=== PATIENT | male | born 1930 | race Caucasian/White ===

== ENCOUNTER 2017-08-12 18:36 | Inpatient (IN) | payer MEDICARE ==
--- NOTE | 2017-08-12 19:17 | RAD ---
CHEST ONE VIEW: 08/12/17 HISTORY: Sepsis alert. Fever. COMPARISON: 07/21/16. 03/23/16. FINDINGS: Atherosclerosis of the aorta. Normal cardiac silhouette. Diminished lung volumes. No consolidation or masses. No pleural effusion. No pneumothorax. Chronic injury to the right scapula is noted. IMPRESSION: No acute cardiopulmonary process. POS: [facility]
[2017-08-12 19:36] LABS: #Lymphocytes 1.1 thou/uL (1.20-3.40); #Monocytes 1.3 thou/uL (0.11-0.59); #Neutrophils 15.4 thou/uL (1.40-6.50); %Basophils 0.2 % (0.0-1.0); %Eosinophils 0.2 % (0.0-10.0); %Lymphocytes 5.9 % (21.0-51.0); %Monocytes 7.1 % (0.0-10.0); %Neutrophils 86.7 % (42.0-75.0); Hemoglobin 12.5 g/dL (14.0-18.0); Mean Corpuscular HGB CONC 33.4 g/dL (32.0-36.0); Mean Corpuscular Hemoglobin 31.7 pg (27.0-31.0); Mean Corpuscular Volume 94.8 fl (80.0-94.0); Mean Platelet Volume 6.2 fL (7.4-10.4); Platelet Count 248 thou/uL (130-400); RBC Distribution Width 12.5 % (11.5-14.5); Red Blood Cell (RBC) Count 3.95 mill/uL (4.70-6.10); White Blood Cell (WBC) Count 17.8 thou/uL (4.8-10.8)
[2017-08-12 19:36] LABS: Bilirubin Negative (Negative); Blood, Urine Trace (Negative); Clarity CLOUDY (Clear); Glucose, Urine (Dipstick) Negative (Negative); Leukocyte Large (Negative); Nitrite Negative (Negative); Protein, Urine (Dipstick) 30 mg/dL (Neg-Trace); Specific Gravity, Urine 1.016 (1.002-1.036); Urobilinogen 0.2 mg/dL (0.2-1.0); pH, Urine 7.5 (5.0-9.0)
[2017-08-12 19:37] LABS: Bacteria/HPF 4+ HPF (None Seen); Pathc Cast-AUWi Flag 1.01 (0-2.49); RBC/HPF 0-3 HPF (0-3); Squamous Epithelial None Seen HPF (0-3)
[2017-08-12 19:39] LABS: Hyaline Casts/LPF 0-3 HYALINE CAST LPF (0-3 Hyaline)
[2017-08-12 19:41] LABS: PTT 32.7 SEC (22.9-36.1)
[2017-08-12 19:46] LABS: INR-International Normal Ratio 1.1; Prothrombin Time 14.7 SEC (12.0-14.7)
[2017-08-12 19:56] LABS: CRP (Inflammatory) 5.84 mg/dL (= or < 0.5); Magnesium 1.6 mg/dL (1.6-2.6)
[2017-08-12 19:58] LABS: ALT (SGPT) 12 U/L (8-55); AST (SGOT) 18 U/L (5-34); Albumin 3.5 g/dL (3.4-4.8); Alkaline Phosphatase 64 U/L (40-150); Anion Gap 15 mmol/L (10-20); BUN (Urea Nitrogen) 16 mg/dL (8.4-25.7); Bilirubin, Total 0.4 mg/dL (0.2-1.2); CK (CPK) 112 U/L (30-200); Calc. Creatinine Clearance 0 mL/min (70-130); Calcium 8.6 mg/dL (7.8-10.44); Carbon Dioxide 19 mmol/L (23-31); Chloride 98 mmol/L (98-107); Estimated GFR-MDRD 87; Globulin 3.3 g/dL (2.4-3.5); Glucose 169 mg/dL (83-110); Protein, Total 6.8 g/dL (5.8-8.1); Sodium 128 mmol/L (136-145)
[2017-08-12 20:01] LABS: CKMB 0.9 ng/mL (0-6.6); Troponin I 0.015 ng/mL (< 0.028)
--- NOTE | 2017-08-12 21:28 | PDOC.FPRHP ---
- History of Present Illness Chief Complaint: AMS, Fever at [facility] History of Present Illness: 86 yo male comes in after having increased confusion and fever recorded at [facility] today. Pt is A&Ox1. Unable to obtain accurate history from the patient. Reports having chills at this time. Reports having some pain in his legs. Denies any SOB or chest pain. Pt mireya, the POA, is present in the room. 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 santana for last week. Is getting cream for it to see if hills. Has colostomy in place. Pt right now getting cream for his eye. 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 She reports being told by [facility] he appeared ill and had fever. She says recently he has had trouble swallowing liquids and coughs when drinking. She says patient is around his baseline of confusion. Says he does not know where he is at all the time. No other concerns or complaints at this time. - Allergies/Adverse Reactions Allergies Allergy/AdvReac Type Severity Reaction Status Date / Time metformin HCl Allergy Mild Verified 07/13/16 22:57 [From Glucophage] - Home Medications Medication Instructions Recorded Confirmed Type Acetaminophen [Tylenol Regular 1 - 2 tab PO Q4HR 11/11/14 08/12/17 History Strength] Bisacodyl [Dulcolax] 10 mg MA DAILY PRN 03/04/15 08/12/17 History Furosemide 20 mg PO QAM 03/13/15 08/12/17 History Calcium Carbonate/Vitamin D3 600 tablet PO DAILY 03/23/16 08/12/17 History [Calcium 600 + Vitamin D] Cholecalciferol (Vitamin D3) 2,000 unit PO DAILY 03/23/16 08/12/17 History [Vitamin D3] Pantoprazole [Protonix] 40 mg PO DAILY 03/23/16 08/12/17 History Metoprolol Tartrate [Lopressor] 12.5 mg PO BID #60 tab 03/24/16 08/12/17 Rx Aspirin [Aspirin Chewable Tablet] 81 mg PO DAILY 03/31/16 08/12/17 History Insulin Glargine,Hum.Rec.Anlog 10 unit SQ QAM 03/31/16 08/12/17 History [Lantus Solostar] Multivitamin [Multivitamins] 1 tab PO DAILY 07/13/16 08/12/17 History Diltiazem HCl [Cardizem] 60 mg PO 0700,1500,2300 #90 tab 07/24/16 08/12/17 Rx Ferrous Sulfate 325 mg PO DAILY #30 tablet 07/24/16 08/12/17 Rx traMADol HCl [Ultram] 50 mg PO QID #30 tab 07/24/16 08/12/17 Rx Diltiazem HCl [Cardizem SR] 180 mg PO DAILY 08/12/17 08/12/17 History Erythromycin Base 0.5% Oint 1 applic R EYE BID 08/12/17 08/12/17 History [Erythromycin Base 0.5% Oint] Nystatin [Nystatin Powder] 1 applic TOP BID PRN 08/12/17 08/12/17 History Propylene Glycol/PEG 400/PF 2 each OP BID 08/12/17 08/12/17 History [Systane 0.3-0.4% Eye Drops] - History PMHx: Perirectal Abscess, Colostomy Present, Hx of Adenocarcinoma of Sigmoid Colon, Anemia of chronic disease, Chronic Hyponatremia, Vitamin D Deficiency, GERD, dCHF, hx a. fib, DMII PSHx: R. fourth toe amputation, Perirectal I/T/D fistulotomy 2014, Left Hemicolectomy FHx: Noncontributory Social: No drugs, alcohol, or illicit drug use. Lives at [facility] - Review of Systems ROS unobtainable: due to mental status General: reports: fever/chills, weight/appetite/sleep changes. denies: night sweats, fatigue, other ENT: denies: rhinorrhea, other Respiratory: denies: cough, congestion, shortness of breath, exercise intolerance, other Cardiovascular: denies: chest pain, palpitation, edema, paroxysmal nocturnal dyspnea, orthopnea Gastrointestinal: denies: nausea, vomiting, constipation, GI bleeding Genitourinary: denies: incontinence, dysuria, polyuria, discharge Skin: denies: rashes, lesions, jaundice, itching Musculoskeletal: denies: pain, tenderness, stiffness, swelling, arthritis/ arthralgias Neurological: denies: numbness, syncope, seizure, weakness Psychological: denies: anxiety, depression - Vital signs BP: [163/94] HR: [94] RR: [18] Tmax: [99.3] Pox: [98%]% on [RA] Wt: [] - Physical Exam Constitutional: NAD, awake, alert and oriented, well developed HEENT: normocephalic and atraumatic, PERRLA -HEENT: mucous membranes dry Neck: supple, no LAD, no JVD Chest: no-tender to palpation, no lesions Heart: normal S1/S2, no murmurs/rubs/gallops, pulses present -Heart: irregularly irregular Lungs: CTAB, no respiratory distress, good air movement, no rales/rhonchi Abdomen: soft, bowel sounds present -Abdomen: Large reducible umbilical hernia on the left side noted. Colostomy in LUQ. Patent, no sign of infection or obstructions Musculoskeletal: normal structure, normal tone, ROM grossly normal Neurological: no focal deficit Skin: no rash/lesions -Skin: Has basal cell cancers on nose Heme/Lymphatic: no unusual bruising or bleeding, no purpura, no petechia -Psychiatric: A&Ox1 FMR H&P: Results - Labs Result Diagrams: 08/12/17 19:20 08/12/17 19:20 Lab results: WBC 17.8 thou/uL (4.8-10.8) H 08/12/17 19:20 Hgb 12.5 g/dL (14.0-18.0) L 08/12/17 19:20 Hct 37.4 % (42.0-52.0) L 08/12/17 19:20 MCV 94.8 fl (80.0-94.0) H 08/12/17 19:20 Plt Count 248 thou/uL (130-400) 08/12/17 19:20 Neutrophils % 86.7 % (42.0-75.0) H 08/12/17 19:20 Sodium 128 mmol/L (136-145) L 08/12/17 19:20 Potassium 4.0 mmol/L (3.5-5.1) 08/12/17 19:20 Chloride 98 mmol/L (98-107) 08/12/17 19:20 Carbon Dioxide 19 mmol/L (23-31) L 08/12/17 19:20 BUN 16 mg/dL (8.4-25.7) 08/12/17 19:20 Creatinine 0.83 mg/dL (0.6-1.3) 08/12/17 19:20 Glucose 169 mg/dL (83-110) H 08/12/17 19:20 Lactic Acid 2.0 mmol/L (0.5-2.2) 08/12/17 19:20 Calcium 8.6 mg/dL (7.8-10.44) 08/12/17 19:20 Total Bilirubin 0.4 mg/dL (0.2-1.2) 08/12/17 19:20 AST 18 U/L (5-34) 08/12/17 19:20 ALT 12 U/L (8-55) 08/12/17 19:20 Alkaline Phosphatase 64 U/L (40-150) 08/12/17 19:20 Creatine Kinase 112 U/L (30-200) 08/12/17 19:20 CK-MB (CK-2) 0.9 ng/mL (0-6.6) 08/12/17 19:20 C-Reactive Protein 5.84 mg/dL (= or < 0.5) H 08/12/17 19:20 Serum Total Protein 6.8 g/dL (5.8-8.1) 08/12/17 19:20 Albumin 3.5 g/dL (3.4-4.8) 08/12/17 19:20 Lipase 13 U/L (8-78) 08/12/17 19:20 Urine Ketones Negative mg/dL (Negative) 08/12/17 19:25 Urine Blood Trace (Negative) H 08/12/17 19:25 Urine Nitrite Negative (Negative) 08/12/17 19:25 Ur Leukocyte Esterase Large (Negative) H 08/12/17 19:25 Urine RBC 0-3 HPF (0-3) 08/12/17 19:25 Urine WBC Greater Than 50-TNTC HPF (0-3) H 08/12/17 19:25 Ur Squamous Epith Cells None Seen HPF (0-3) 08/12/17 19:25 Urine Bacteria 4+ HPF (None Seen) H 08/12/17 19:25 - Radiology Interpretation Chest x-ray Status: image reviewed by me, report reviewed by me (No acute cardiopulmonary process) FMR H&P: A/P - Problem List (1) Sepsis Current Visit: Yes Status: Acute Code(s): A41.9 - SEPSIS, UNSPECIFIED ORGANISM (2) UTI (urinary tract infection) Current Visit: No Status: Acute (3) Aspiration into airway Current Visit: Yes Status: Acute Code(s): T17.908A - UNSP FB IN RESP TRACT, PART UNSP CAUSING OTH INJURY, INIT (4) Chronic hyponatremia Current Visit: No Status: Acute Code(s): E87.1 - HYPO-OSMOLALITY AND HYPONATREMIA (5) HTN (hypertension) Current Visit: No Status: Acute Code(s): I10 - ESSENTIAL (PRIMARY) HYPERTENSION (6) Status post partial colectomy Current Visit: No Status: Acute Code(s): Z90.49 - ACQUIRED ABSENCE OF OTHER SPECIFIED PARTS OF DIGESTIVE TRACT (7) Ulcerative colitis Current Visit: No Status: Acute Code(s): K51.90 - ULCERATIVE COLITIS, UNSPECIFIED, WITHOUT COMPLICATIONS Qualifiers: Ulcerative colitis location: other ulcerative colitis Digestive disease complication type: other complication Qualified Code(s): K51.818 - Other ulcerative colitis with other complication (8) Afib Current Visit: No Status: Chronic Code(s): I48.91 - UNSPECIFIED ATRIAL FIBRILLATION (9) Anemia in chronic illness Current Visit: No Status: Chronic Code(s): D63.8 - ANEMIA IN OTHER CHRONIC DISEASES CLASSIFIED ELSEWHERE (10) DM type 2 (diabetes mellitus, type 2) Current Visit: No Status: Chronic Qualifiers: Diabetes mellitus complication status: with unspecified complications (11) Dehydration Current Visit: No Status: Chronic Code(s): E86.0 - DEHYDRATION (12) Ulcerative colitis Current Visit: Yes Status: Acute Code(s): K51.90 - ULCERATIVE COLITIS, UNSPECIFIED, WITHOUT COMPLICATIONS (13) Eye infection Current Visit: Yes Status: Acute Code(s): H44.009 - UNSPECIFIED PURULENT ENDOPHTHALMITIS, UNSPECIFIED EYE - Plan Disposition/LOS: Sepsis 2/2 UTI -UA LE, Bact and WBC positive. Pt had recorded fevers at [facility] with Chills. A&Ox1. Per POA is around is baseline of confusion. -Continue Rocephin -Blood cx and urine cx pending. -Lactic acid normal. CRP elevated -Will adjust abx as needed -Tachycardic and WBC elevated. Will trend CBC -NS@125mls/hr Aspiration into Airway -CXRAY clear. No concern for aspiration PNA at this time -Consult speech for further workup Anorectal Fistula -Seeing jose eduardo outpatient. -Will consult wound care. Does not appear to be acutely infected at this time. Eye infection s/p removal basal cell carcinoma in R. eyelid -Is using a cream currently. Will med rec and continu here. -F/u outpatient. HTN -Continue home meds at this time. chronic A.fib -Rate controlled, was tachy initially. Has resolved -Tele for monitoring -Continue home meds dCHF -No sign of fluid overload -Hold lasix as mildly dehydrated and giving fluids for sepsis Hx of adenomcarcinoma s/p Left Hemicolectomy w/ Colostomy in place -Routine colostomy care -Monitor output Ulcerative Colitis -continue home meds -Does not appear to be in flare. Continue to monitor DMII -Mild SSI, accuchecks ACHS. Diet controlled Umbilical Hernia -Large reducible umbilical hernia. Not inflamed. -Does not cause pain. Continue to monitor. F/u outpatient with Dr. Santana. FMR H&P: Upper Level - Plan Date/Time: 08/12/172121 I, [], have evaluated this patient and agree with findings/plan as outlined by internist resident. Pertinent changes/additions are listed here. Attending Addendum - Attending Addendum Date/Time: 08/12/172240 I personally evaluated the patient and discussed the management with Dr. Mills on 08/12/17. I agree with the History, Examination, Assessment and Plan documented above with any addition or exceptions noted below. Patient presents with febrile UTI and sepsis. Cultures pending. Continue Rocephin and IV resuscitation. AMS resolving per family. Will also treat wounds on eyelid and colostomy area while here. Recommend evaluation to rule out urinary retention prior to discharge.
[2017-08-12 21:56] VITALS: BMI 27.3
[2017-08-12] MEDS ORDERED: cefTRIAXone\\ROCEPHIN 1 GM in Sodium Chloride 0.9% 100 ML IVPB SCH (22:02)
[2017-08-12] MEDS ORDERED: HumaLOG 300 UNITS/3 ML VIAL SC PRN (22:02)
[2017-08-12] MEDS ORDERED: Bisacodyl 5 MG TAB PO PRN (22:02)
[2017-08-12] MEDS ORDERED: Dextrose 50% Abboject 50 ML SYRINGE SLOW IVP PRN (22:02)
[2017-08-12] MEDS ORDERED: Bisacodyl 10 MG SUPP PR PRN (22:02)
[2017-08-12] MEDS ORDERED: Ondansetron ODT 4 MG TAB PO PRN (22:02)
[2017-08-12] MEDS ORDERED: Dextrose 5% in Water 1,000 ML IV PRN (22:02)
[2017-08-12] MEDS ORDERED: Acetaminophen 650 MG Suppository PR PRN (22:02)
[2017-08-12] MEDS ORDERED: Ondansetron PF 4 MG/2 ML Vial IVP PRN (22:02)
[2017-08-12] MEDS: Sodium Chloride 0.9% 1,000 ML IV SCH (22:20)
[2017-08-12] MEDS: Acetaminophen 325 MG TAB PO PRN (23:19)
[2017-08-13 05:23] LABS: #Lymphocytes 1.6 thou/uL (1.20-3.40); #Monocytes 1.2 thou/uL (0.11-0.59); #Neutrophils 10.5 thou/uL (1.40-6.50); %Basophils 0.2 % (0.0-1.0); %Eosinophils 0.2 % (0.0-10.0); %Lymphocytes 12.1 % (21.0-51.0); %Monocytes 9.2 % (0.0-10.0); %Neutrophils 78.4 % (42.0-75.0); Hemoglobin 11.6 g/dL (14.0-18.0); Mean Corpuscular HGB CONC 33.8 g/dL (32.0-36.0); Mean Corpuscular Hemoglobin 31.8 pg (27.0-31.0); Mean Corpuscular Volume 94.2 fl (80.0-94.0); Mean Platelet Volume 5.9 fL (7.4-10.4); Platelet Count 217 thou/uL (130-400); RBC Distribution Width 12.6 % (11.5-14.5); Red Blood Cell (RBC) Count 3.64 mill/uL (4.70-6.10); White Blood Cell (WBC) Count 13.4 thou/uL (4.8-10.8)
[2017-08-13 05:40] LABS: Anion Gap 12 mmol/L (10-20); BUN (Urea Nitrogen) 13 mg/dL (8.4-25.7); Calc. Creatinine Clearance 69 mL/min (70-130); Calcium 8.4 mg/dL (7.8-10.44); Carbon Dioxide 22 mmol/L (23-31); Chloride 99 mmol/L (98-107); Estimated GFR-MDRD 87; Glucose 125 mg/dL (83-110); Potassium 3.8 mmol/L (3.5-5.1); Sodium 129 mmol/L (136-145)
[2017-08-13] MEDS: Sodium Chloride 0.9% 1,000 ML IV SCH ×3 (06:26→21:37)
--- NOTE | 2017-08-13 08:58 | PDOC.FM ---
- Subjective Subjective: Patient AOx1 this AM, which is apparently his baseline. He is resting comfortably in bed. He denies any chest pain, SOB, N/V, fevers, dysuria. - Objective MAR Reviewed: Yes Vital Signs & Weight: Vital Signs (12 hours) Temp Pulse Resp BP BP Pulse Ox 08/13/17 03:57 99.8 F H 69 22 H 115/57 L 96 08/13/17 00:00 99.8 F H 88 16 139/69 94 L 08/12/17 21:56 100.5 F H 94 20 182/97 H 99 Weight Weight 79.379 kg I&O: 08/12/17 08/13/17 08/14/17 06:59 06:59 06:59 Intake Total 1245 Balance 1245 Result Diagrams: 08/13/17 04:35 08/13/17 04:35 <Shakira Varma - Last Filed: 08/13/17 08:54> - Objective Vital Signs & Weight: Vital Signs (12 hours) Temp Pulse Resp BP Pulse Ox 08/13/17 03:57 99.8 F H 69 22 H 115/57 L 96 08/13/17 00:00 99.8 F H 88 16 139/69 94 L Weight Weight 79.379 kg I&O: 08/12/17 08/13/17 08/14/17 06:59 06:59 06:59 Intake Total 1245 Balance 1245 Result Diagrams: 08/13/17 04:35 08/13/17 04:35 <Domo Samuel - Last Filed: 08/13/17 11:48> Phys Exam - Physical Examination Constitutional: NAD HEENT: moist MMs Respiratory: no wheezing, no rales, no rhonchi, clear to auscultation bilateral Cardiovascular: no significant murmur, no rub irregularly irregular Gastrointestinal: soft, non-tender, no distention, positive bowel sounds Musculoskeletal: no edema, pulses present Neurological: non-focal, moves all 4 limbs Psychiatric: normal affect Deviation from normal: AOx1 Skin: normal turgor <Shakira Varma - Last Filed: 08/13/17 08:54> Dx/Plan (1) Sepsis Code(s): A41.9 - SEPSIS, UNSPECIFIED ORGANISM Status: Acute QualifierTitle: Sepsis type: sepsis due to unspecified organism Qualified Code(s): A41.9 - Sepsis, unspecified organism (2) UTI (urinary tract infection) Status: Acute QualifierTitle: Urinary tract infection type: acute cystitis Hematuria presence: without hematuria Qualified Code(s): N30.00 - Acute cystitis without hematuria (3) Aspiration into airway Code(s): T17.908A - UNSP FB IN RESP TRACT, PART UNSP CAUSING OTH INJURY, INIT Status: Acute QualifierTitle: Encounter type: initial encounter Qualified Code(s): T17.908A - Unspecified foreign body in respiratory tract, part unspecified causing other injury, initial encounter (4) Eye infection Code(s): H44.009 - UNSPECIFIED PURULENT ENDOPHTHALMITIS, UNSPECIFIED EYE Status: Acute QualifierTitle: Laterality: right Qualified Code(s): H44.001 - Unspecified purulent endophthalmitis, right eye (5) Chronic hyponatremia Code(s): E87.1 - HYPO-OSMOLALITY AND HYPONATREMIA Status: Acute (6) HTN (hypertension) Code(s): I10 - ESSENTIAL (PRIMARY) HYPERTENSION Status: Acute QualifierTitle: Hypertension type: essential hypertension Qualified Code( s): I10 - Essential (primary) hypertension (7) Status post partial colectomy Code(s): Z90.49 - ACQUIRED ABSENCE OF OTHER SPECIFIED PARTS OF DIGESTIVE TRACT Status: Acute (8) Ulcerative colitis Code(s): K51.90 - ULCERATIVE COLITIS, UNSPECIFIED, WITHOUT COMPLICATIONS Status: Acute QualifierTitle: Ulcerative colitis location: other ulcerative colitis Digestive disease complication type: other complication Qualified Code(s): K51.818 - Other ulcerative colitis with other complication (9) Afib Code(s): I48.91 - UNSPECIFIED ATRIAL FIBRILLATION Status: Chronic QualifierTitle: Atrial fibrillation type: paroxysmal Qualified Code(s): I48.0 - Paroxysmal atrial fibrillation (10) Anemia in chronic illness Code(s): D63.8 - ANEMIA IN OTHER CHRONIC DISEASES CLASSIFIED ELSEWHERE Status : Chronic (11) DM type 2 (diabetes mellitus, type 2) Status: Chronic QualifierTitle: Diabetes mellitus local intermodal truck driver insulin use: with [facility] use Diabetes mellitus complication status: with unspecified complications Qualified Code(s): E11.8 - Type 2 diabetes mellitus with unspecified complications; Z79.4 - alf (current) use of insulin; Z79.4 - alf ( current) use of insulin; Z79.4 - adjunct faculty for medical terminology (current) use of insulin; Z79.4 - adjunct faculty for medical terminology (current) use of insulin - Plan Plan: Sepsis 2/2 UTI UA LE, Bact and WBC positive. CRP elevated, but lactate normal. Patient initially febrile, tachycardic, and tachypneic with elevated WBC count. Pt had recorded fevers at [facility] with [facility]. A&Ox1. Per POA is around his baseline of confusion. -Rocephin day 2 -Blood cx and urine cx pending. -Will adjust abx as needed -NS@125mls/hr Aspiration into Airway CXR clear. No concern for aspiration PNA at this time -Consult speech for further workup Anorectal Fistula Seeing Dr. Santana outpatient. -Will consult wound care. Does not appear to be acutely infected at this time. Eye infection s/p removal basal cell carcinoma in R. eyelid -Continue Erythromycin ointment -F/u outpatient. HTN -Continue home meds at this time. Paroxysmal A.fib Rate controlled, was tachy initially 2/2 sepsis. Has resolved -Tele for monitoring -Continue home meds HFpEF No sign of fluid overload -Hold lasix as mildly dehydrated and giving fluids for sepsis -Monitor for signs/symptoms of fluid overload -Strict I/O's Hx of adenomcarcinoma s/p Left Hemicolectomy w/ Colostomy in place -Routine colostomy care -Monitor output Ulcerative Colitis -continue home meds -Does not appear to be in flare. Continue to monitor DMII -Mild SSI, accuchecks ACHS. Umbilical Hernia Large reducible umbilical hernia. Not inflamed. Does not cause pain. -Continue to monitor. -F/u outpatient with Dr. Santana. <Shakira Varma - Last Filed: 08/13/17 08:54> Attending Addendum - Attending Addendum Date/Time: 08/13/17 0245 I personally evaluated the patient and discussed the management with Dr. Varma I agree with the History, Examination, Assessment and Plan documented above with any addition or exceptions noted below. Will ask speech therapy evaluationseems to be significant aspiration risk PE lungs clear to Auscultation. Patient at baseline regard Mental Status will need frequent reorientation. Continue antibiotic presume sepsis source is secondary to UTI. <Domo Samuel - Last Filed: 08/13/17 11:48>
[2017-08-13] MEDS ORDERED: Polyethylene Glycol OPTH DROP 15 ML BOT EA EYE SCH (09:00)
[2017-08-13] MEDS ORDERED: Metoprolol Tartrate 25 MG TAB PO SCH (09:00)
[2017-08-13] MEDS: traMADol HCl 50 MG TAB PO SCH ×2 (09:21→13:50)
[2017-08-13] MEDS: Calcium Carbonate + Vit D 1 TAB PO SCH (09:22)
[2017-08-13] MEDS: Folic Acid 1 MG TAB PO SCH (09:22)
[2017-08-13 12:15] LABS: Anion Gap 11 mmol/L (10-20); BUN (Urea Nitrogen) 12 mg/dL (8.4-25.7); Calc. Creatinine Clearance 73 mL/min (70-130); Calcium 8.2 mg/dL (7.8-10.44); Carbon Dioxide 22 mmol/L (23-31); Chloride 100 mmol/L (98-107); Estimated GFR-MDRD Greater than 90; Glucose 183 mg/dL (83-110); Magnesium 1.7 mg/dL (1.6-2.6); Potassium 3.8 mmol/L (3.5-5.1); Sodium 129 mmol/L (136-145)
--- NOTE | 2017-08-13 14:10 | EKG ---
Test Reason : Blood Pressure : / mmHG Vent. Rate : 055 BPM Atrial Rate : 055 BPM P-R Int : 210 ms QRS Dur : 078 ms QT Int : 440 ms P-R-T Axes : 077 052 093 degrees QTc Int : 420 ms Sinus bradycardia with 1st degree A-V block with Premature atrial complexes Nonspecific T wave abnormality Abnormal ECG Confirmed by JASPREET HERRERA ([id number]) on 08/13/2017 2:09:35 PM Referred By: MARIBEL Confirmed By:JASPREET HERRERA
[2017-08-13] MEDS ORDERED: traMADol HCl 50 MG TAB PO PRN (15:11)
[2017-08-13] MEDS ORDERED: cefTRIAXone\\ROCEPHIN 1 GM, Syringe 0.4 ML in Sterile Water 9.6 ML SLOW IVP SCH (21:00)
[2017-08-13] MEDS ORDERED: Dutasteride 0.5 MG CAP PO SCH (21:00)
[2017-08-13] MEDS: Polyethylene Glycol OPTH DROP 15 ML BOT EA EYE SCH (21:35)
[2017-08-13] MEDS: Erythromycin Base 0.5% Oint 1 GM TUBE R EYE SCH (21:46)
[2017-08-14] MEDS ORDERED: Sodium Chloride 0.9% 1,000 ML IV SCH (05:30)
--- NOTE | 2017-08-14 06:25 | PDOC.FM ---
- Subjective Subjective: Patient is doing well this morning. He is very pleasant and reports feeling well today. He reports he is ready to go back to his rest home. He denies pain , dysuria, SOB, CP, chills, and is AOx4. No acute events overnight. - Objective MAR Reviewed: Yes Vital Signs & Weight: Vital Signs (12 hours) Temp Pulse Resp BP BP Pulse Ox 08/14/17 03:50 97.8 F 76 18 164/78 H 93 L 08/13/17 21:30 97.8 F 69 18 93 L 08/13/17 19:50 97.8 F 69 18 153/72 H 93 L Weight Admit Weight 79.379 kg Weight 84.277 kg I&O: 08/12/17 08/13/17 08/14/17 06:59 06:59 06:59 Intake Total 1245 4140 Output Total 220 Balance 1245 3920 Result Diagrams: 08/13/17 04:35 08/13/17 11:54 <Natalie Light - Last Filed: 08/14/17 07:49> - Objective Vital Signs & Weight: Vital Signs (12 hours) Temp Pulse Resp BP BP Pulse Ox 08/14/17 11:42 96.9 F L 77 16 175/81 H 08/14/17 08:00 98.6 F 80 16 154/71 H 98 08/14/17 03:50 97.8 F 76 18 164/78 H 93 L Weight Admit Weight 79.379 kg Weight 84.277 kg I&O: 08/13/17 08/14/17 08/15/17 06:59 06:59 06:59 Intake Total 1245 4140 Output Total 220 Balance 1245 3920 Result Diagrams: 08/13/17 04:35 08/13/17 11:54 <Domo Samuel - Last Filed: 08/14/17 12:12> Phys Exam - Physical Examination Constitutional: NAD HEENT: moist MMs R eyelid with swelling, improved from admission. no drainage noted Neck: full ROM Respiratory: no wheezing, no rales, clear to auscultation bilateral Cardiovascular: RRR 3/6 systolic murmur Gastrointestinal: soft, non-tender Musculoskeletal: no edema, pulses present Neurological: non-focal, moves all 4 limbs Psychiatric: normal affect, A&O x 3 Skin: cap refill <2 seconds <Natalie Light - Last Filed: 08/14/17 07:49> Dx/Plan (1) Sepsis Code(s): A41.9 - SEPSIS, UNSPECIFIED ORGANISM Status: Acute QualifierTitle: Sepsis type: sepsis due to unspecified organism Qualified Code(s): A41.9 - Sepsis, unspecified organism (2) Aspiration into airway Code(s): T17.908A - UNSP FB IN RESP TRACT, PART UNSP CAUSING OTH INJURY, INIT Status: Acute QualifierTitle: Encounter type: initial encounter Qualified Code(s): T17.908A - Unspecified foreign body in respiratory tract, part unspecified causing other injury, initial encounter (3) Eye infection Code(s): H44.009 - UNSPECIFIED PURULENT ENDOPHTHALMITIS, UNSPECIFIED EYE Status: Acute QualifierTitle: Laterality: right Qualified Code(s): H44.001 - Unspecified purulent endophthalmitis, right eye (4) Ulcerative colitis Code(s): K51.90 - ULCERATIVE COLITIS, UNSPECIFIED, WITHOUT COMPLICATIONS Status: Acute (5) Chronic hyponatremia Code(s): E87.1 - HYPO-OSMOLALITY AND HYPONATREMIA Status: Acute (6) HTN (hypertension) Code(s): I10 - ESSENTIAL (PRIMARY) HYPERTENSION Status: Acute QualifierTitle: Hypertension type: essential hypertension Qualified Code( s): I10 - Essential (primary) hypertension (7) Status post partial colectomy Code(s): Z90.49 - ACQUIRED ABSENCE OF OTHER SPECIFIED PARTS OF DIGESTIVE TRACT Status: Acute (8) UTI (urinary tract infection) Status: Acute QualifierTitle: Urinary tract infection type: acute cystitis Hematuria presence: without hematuria Qualified Code(s): N30.00 - Acute cystitis without hematuria (9) Ulcerative colitis Code(s): K51.90 - ULCERATIVE COLITIS, UNSPECIFIED, WITHOUT COMPLICATIONS Status: Acute QualifierTitle: Ulcerative colitis location: other ulcerative colitis Digestive disease complication type: other complication Qualified Code(s): K51.818 - Other ulcerative colitis with other complication (10) Afib Code(s): I48.91 - UNSPECIFIED ATRIAL FIBRILLATION Status: Chronic QualifierTitle: Atrial fibrillation type: paroxysmal Qualified Code(s): I48.0 - Paroxysmal atrial fibrillation (11) DM type 2 (diabetes mellitus, type 2) Status: Chronic QualifierTitle: Diabetes mellitus alf insulin use: with alf use Diabetes mellitus complication status: with unspecified complications Qualified Code(s): E11.8 - Type 2 diabetes mellitus with unspecified complications; Z79.4 - retirement (current) use of insulin; Z79.4 - retirement ( current) use of insulin; Z79.4 - parts counterman (current) use of insulin; Z79.4 - retirement (current) use of insulin - Plan Plan: Sepsis 2/2 UTI UA LE, Bact and WBC positive. CRP elevated, but lactate normal. Patient initially febrile, tachycardic, and tachypneic with elevated WBC count. Pt had recorded fevers at [facility] with Chills. A&Ox1. Per POA is around his baseline of confusion. -Rocephin day 3 -Blood cx NGTD, urine culture growing presumptive ecoli -Will adjust abx as needed per sensitivities, transition to PO at that time. -patient tolerating PO, d/c IVF Bradycardia, resolved -Yesterday pulse went into 40's, patient asymptomatic per chart review. Metoprolol was discontinued and diltiazem decreased. -Today pulse is 76 -continue current meds Aspiration into Airway CXR clear. No concern for aspiration PNA at this time -Consult speech for further workup Anorectal Fistula Seeing Dr. Santana outpatient. -Will consult wound care. Does not appear to be acutely infected at this time. Eye infection s/p removal basal cell carcinoma in R. eyelid -Continue Erythromycin ointment -F/u outpatient. HTN -Continue home meds at this time. -elevated this morning, likely 2/2 medication adjustment yesterday for bradycardia. -continue to monitor and may need to add blood pressure medication if we continue to hold metoprolol for bradycardia. -d/c IVF Paroxysmal A.fib Rate controlled, was tachy initially 2/2 sepsis. Has resolved -Tele for monitoring -Continue home meds HFpEF No sign of fluid overload -Hold lasix as mildly dehydrated and giving fluids for sepsis -Monitor for signs/symptoms of fluid overload -Strict I/O's -up 5kg from admission, no SOB, orthopnea, or abnormal exam findings. D/c IVF Hx of adenomcarcinoma s/p Left Hemicolectomy w/ Colostomy in place -Routine colostomy care -Monitor output Ulcerative Colitis -continue home meds -Does not appear to be in flare. Continue to monitor DMII -Mild SSI, accuchecks ACHS. -at goal for inpatient admission Umbilical Hernia Large reducible umbilical hernia. Not inflamed. Does not cause pain. -Continue to monitor. -F/u outpatient with Dr. Santana. <Natalie Light - Last Filed: 08/14/17 07:49> Attending Addendum - Attending Addendum Date/Time: 08/14/17 2535 I personally evaluated the patient and discussed the management with Dr. Light I agree with the History, Examination, Assessment and Plan documented above with any addition or exceptions noted below. Urine culture final pending feel ok discharge back to [facility] with oral cephalosporin coverage pending final results. Heart rate control noted need to adjust RX to avoid bradycardia. <Domo Samuel - Last Filed: 08/14/17 12:12>
[2017-08-14] MEDS: Calcium Carbonate + Vit D 1 TAB PO SCH (09:39)
[2017-08-14] MEDS: Folic Acid 1 MG TAB PO SCH (09:39)
[2017-08-14] MEDS: Polyethylene Glycol OPTH DROP 15 ML BOT EA EYE SCH (09:40)
[2017-08-14] MEDS: Erythromycin Base 0.5% Oint 1 GM TUBE R EYE SCH (09:40)
[2017-08-14] MEDS: Acetaminophen 325 MG TAB PO PRN (09:50)
[2017-08-14 11:42] VITALS: TEMP 96.9
[2017-08-14 12:51] VITALS: BP 145/63
--- NOTE | 2017-08-16 15:12 | DIS-2 ---
DATE OF ADMISSION: 08/12/2017 DATE OF DISCHARGE: 08/14/2017 RESIDENT: Natalie Light DO. ADMITTING ATTENDING: Dr. Lynn Lopez. DISCHARGE ATTENDING: Dr. Domo Samuel. CONSULTATIONS: None. PROCEDURES AND IMAGIN. Chest x-ray showed no acute cardiopulmonary process. 2. EKG showed sinus bradycardia with first degree AV block and premature atrial complexes, heart rat e of 55 beats per minute. PRIMARY DIAGNOSES: 1. Sepsis secondary to urinary tract infection, resolved. 2. Bradycardia, resolved. 3. 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 SECONDARY DIAGNOSES: 1. Hypertension. 2. Paroxysmal atrial fibrillation. 3. Heart failure with preserved ejection fraction. 4. 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 5. Ulcerative colitis. 6. Type 2 diabetes. 7. Umbilical hernia. DISCHARGE MEDICATIONS: 1. Systane eye drops 2 drops each eye b.i.d. 2. Nystatin apply topically to affected area b.i.d. p.r.n. 3. Erythromycin ointment applied to the right eye b.i.d. 4. Lantus 10 units subcutaneously q.a.m. 5. Ultram 50 mg p.o. q.i.d. 6. Dulcolax 10 mg AL daily p.r.n. 7. Tylenol 325 mg p.o. q.4 hours p.r.n. pain. 8. Daily multivitamin. 9. Aspirin 81 mg p.o. daily. 10. Ferrous sulfate 325 mg p.o. daily. 11. Metoprolol tartrate 12.5 mg p.o. b.i.d. 12. Diltiazem 60 mg p.o. t.i.d. 13. Vitamin D3 2000 units p.o. daily. 14. Calcium carbonate/vitamin D3 600 mg/125 mg p.o. daily. 15. Protonix 40 mg p.o. daily. 16. Furosemide 20 mg p.o. daily. 17. Macrobid 100 mg p.o. b.i.d. 18. Folic acid 1 mg p.o. daily. 19. Avodart 0.5 mg p.o. at bedtime. 20. Humira 40 mg subcutaneous every 14 days. DISCONTINUED MEDICATIONS: Diltiazem 180 mg p.o. daily. HISTORY OF PRESENT ILLNESS AND HOSPITAL COURSE: The patient is an 86-year-old male who came in with altered mental status from the intermediate. He was found to have altered mental status and fever re corded at the intermediate. He was found to have a UTI. He also had some concern for right eye infe ction, previously had surgical removal of basal cell carcinoma of the eyelid and had follow up with o phthalmology just last week. Also has a chronic rectal fistula and had seen Dr. Santana as an outpat ient last week for that purpose. The fistula and eye did not seem to be sources for infection or at least sepsis. The patient was placed on IV antibiotics and monitored overnight. He was also given I V fluids. He was afebrile during his hospital stay and made great recovery in mentation, diet, aline l urine, normal bowel and bladder regimen. Concern for aspiration by nursing staff and reported coug keya prior to arrival. Chest x-ray was normal and Speech therapy saw the patient, found him to do we ll with regular textured solids and liquids by cup, did recommend no straws, small bites and sips. I nitially on evaluation, the patient had a white blood cell count of 17.8, which improved to 13.4 befo re discharge. Chemistry reveals chronic hyponatremia at baseline and urine cultures grew out E. coli . The patient was transitioned to p.o. antibiotics and discharged back to the intermediate. Patient's other comorbidities and chronic medical conditions treated with home medications and were s table. DISCHARGE DISPOSITION: Stable. DISCHARGE INSTRUCTIONS: 1. Location: half-way. 2. Diet: Regular diet. 3. Activity: As tolerated, fall precautions. 4. Followup: Follow up with PCP, Dr. Gretel Hand within 1 week.
[2017-08-25] MEDS ORDERED: Adalimumab 40 MG/0.8 ML SYRINGE SC SCH (09:00)
--- NOTE | 2017-10-09 14:22 | EKG ---
Test Reason : Blood Pressure : / mmHG Vent. Rate : 100 BPM Atrial Rate : 090 BPM P-R Int : 000 ms QRS Dur : 070 ms QT Int : 360 ms P-R-T Axes : 000 008 060 degrees QTc Int : 464 ms Atrial fibrillation Abnormal ECG Confirmed by MARJORIE REYNOLDS, JHOANA Renner ([id number]), continuity editor ARABELLA CLEMONS ([id number]) on 10/09/2017 2:21:53 PM Referred By: Confirmed By:JHOANA AMADOR MD
== END 2017-08-14 14:04 | DRG 871 ==
LOC: ERS 18:36 → 2NO 20:30
PROVIDERS: ADMIT Family Medicine; ATTEND Family Medicine
DX: A41.51 Sepsis due to Escherichia coli [E. coli] (principal); G92 Toxic encephalopathy; K51.90 Ulcerative colitis, unspecified, without complications; E87.1 Hypo-osmolality and hyponatremia; I50.32 Chronic diastolic (congestive) heart failure; I48.0 Paroxysmal atrial fibrillation; I11.0 Hypertensive heart disease with heart failure; E86.0 Dehydration; N30.00 Acute cystitis without hematuria; H44.001 Unspecified purulent endophthalmitis, right eye; D63.8 Anemia in other chronic diseases classified elsewhere; E11.9 Type 2 diabetes mellitus without complications; K21.9 Gastro-esophageal reflux disease without esophagitis; K60.5 Anorectal fistula; K42.9 Umbilical hernia without obstruction or gangrene; R00.1 Bradycardia, unspecified; Z93.3 Colostomy status; Z85.038 Personal history of other malignant neoplasm of large intestine; Z79.82 Long term (current) use of aspirin; Z79.4 Long term (current) use of insulin; Z79.899 Other long term (current) drug therapy; Z90.49 Acquired absence of other specified parts of digestive tract
CPT/HCPCS: 36415; 36416; 51701; 71045; 80048; 80053; 81003; 81015; 82550; 82553; 83605; 83690; 83735; 84484; 85025; 85610; 85730; 86140; 87040; 87077; 87086; 87186; 93005; 93010; 96361; 96365; 96375; A4216; G8996-GN-CL; G8997-GN-CJ; J0696; J3370

== ENCOUNTER 2017-12-13 08:37 | Day surgery (SDC) | payer MEDICARE ==
[2017-12-13] MEDS ORDERED: CEFAZOLIN/Water 2 GM/20 ML SYRINGE ONE (10:07)
[2017-12-13] MEDS ORDERED: Bacitracin Zinc Ointment 30 gm TUBE ONE (10:55)
[2017-12-13] MEDS ORDERED: Bupivacaine/Epinephrine 0.25% 30 ML VIAL ONE (10:55)
[2017-12-13] MEDS ORDERED: Fentanyl 100 MCG/2 ML VIAL ONE ×3 (10:59→14:20)
[2017-12-13] MEDS ORDERED: Propofol 1,000 MG/100 ML VIAL IV ONE (10:59)
[2017-12-13] MEDS ORDERED: Ophthalmic Irrigation Solution 30 ML ONE (12:47)
--- NOTE | 2017-12-13 15:36 | OP ---
DATE OF PROCEDURE: 12/13/2017 PREOPERATIVE DIAGNOSES: 1. 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 2. 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 POSTOPERATIVE DIAGNOSES: 1. 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 2. 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 PROCEDURE: 1. Wide excision skin cancer nose (4.2 cm including adequate margins 97984). 2. Forehead flap for nasal reconstruction 04186 3. Complex closure of face (11 cm) (48920, 14892). 4. Wide excision skin cancer left ear (3.5 cm including adequate margins) (62507). 5. Full thickness skin graft to left ear (9 cm2) (39532). PROCEDURE: Following induction of adequate anesthesia, the patient was prepped and draped in usual s terile fashion in the supine position. Attention was first turned to the patient's dorsal nose skin cancer. The lesion was widely excised including adequate margins. Frozen section analysis came back as margins clear. The defect cannot be closed primarily. A forehead flap reconstruction was elected. A left paramedian forehead flap based on the left suprao rbital artery was designed and elevated in deep plane just above the periosteum. It was rotated and then using 5-0 Prolene suture. Due to the width of the skin cancer, the flap was by necessity quite wide. The forehead flap donor site was difficult to close. This required subgaleal undermining for approxi mately 8 cm medially and laterally from the paramedian flap. This allowed for closure with 3-0 PDS s uture and 4-0 Monocryl suture. Attention was turned to the left ear. The lesion was widely excised along the end helix approaching the triangular fossa. Frozen section analysis came back as margins clear. The defect was too large to be closed primarily. A full-thickness skin graft was elected for reconstruction. This was harvested from the and qu ilted into place with 5-0 chromic suture. The patient tolerated the procedure well. All lombardo were copiously irrigated and inspected for hemo stasis prior to closure.
[2017-12-13] MEDS ORDERED: HYDROcodone/Acetaminophen 5/325 mg Tablet ONE (15:54)
--- NOTE | 2017-12-13 16:01 | EKG ---
Test Reason : PREOP Blood Pressure : / mmHG Vent. Rate : 069 BPM Atrial Rate : 069 BPM P-R Int : 182 ms QRS Dur : 072 ms QT Int : 402 ms P-R-T Axes : 000 018 075 degrees QTc Int : 430 ms Sinus rhythm with Premature supraventricular complexes Otherwise normal ECG When compared with ECG of 13-AUG-2017 11:15, No significant change was found Confirmed by JASPREET HERRERA ([id number]) on 12/13/2017 4:01:13 PM Referred By: GLADYS Confirmed By:JASPREET HERRERA
== END 2017-12-13 17:12 | disposition home or self-care (01) ==
LOC: SDC 08:37
PROVIDERS: ATTEND Plastic Surgery
PROC: 0JX10ZB Transfer Face Subcutaneous Tissue and Fascia with Skin and Subcutaneous Tissue, Open Approach (ICD-10-PCS; principal; 2017-12-13)
PROC: 0HX1XZZ Transfer Face Skin, External Approach (ICD-10-PCS; 2017-12-13)
PROC: 0HB1XZZ Excision of Face Skin, External Approach (ICD-10-PCS; 2017-12-13)
PROC: 0HB3XZZ Excision of Left Ear Skin, External Approach (ICD-10-PCS; 2017-12-13)
DX: C44.311 Basal cell carcinoma of skin of nose (principal); C44.219 Basal cell carcinoma of skin of left ear and external auricular canal; B07.9 Viral wart, unspecified; Z79.82 Long term (current) use of aspirin; Z79.899 Other long term (current) drug therapy; Z88.8 Allergy status to other drugs, medicaments and biological substances
CPT/HCPCS: 88305; 88331; 88332; 93005; 93010; 96374; J2704; J3010

== ENCOUNTER 2018-05-26 07:59 | Emergency (ER) | payer MEDICARE ==
[2018-05-26] MEDS ORDERED: Metoprolol Tartrate 5 MG/5 ML VIAL ONE (08:17)
[2018-05-26 08:30] LABS: #Basophils 0.1 thou/uL (0.0-0.2); #Eosinphils 0.5 thou/uL (0.0-0.7); #Lymphocytes 2.7 thou/uL (1.20-3.40); #Neutrophils 6.5 thou/uL (1.40-6.50); %Basophils 0.7 % (0.0-1.0); %Eosinophils 4.8 % (0.0-10.0); %Lymphocytes 25.1 % (21.0-51.0); %Monocytes 9.2 % (0.0-10.0); %Neutrophils 60.2 % (42.0-75.0); Hemoglobin 12.7 g/dL (14.0-18.0); Mean Corpuscular HGB CONC 31.9 g/dL (32.0-36.0); Mean Corpuscular Hemoglobin 29.8 pg (27.0-31.0); Mean Corpuscular Volume 93.3 fL (78.0-98.0); Mean Platelet Volume 6.1 fL (7.4-10.4); Platelet Count 357 thou/uL (130-400); RBC Distribution Width 12.8 % (11.5-14.5); Red Blood Cell (RBC) Count 4.28 mill/uL (4.70-6.10); White Blood Cell (WBC) Count 10.8 thou/uL (4.8-10.8)
[2018-05-26 08:49] LABS: ALT (SGPT) 17 U/L (8-55); AST (SGOT) 20 U/L (5-34); Albumin 3.9 g/dL (3.4-4.8); Alkaline Phosphatase 94 U/L (40-150); Anion Gap 14 mmol/L (10-20); BUN (Urea Nitrogen) 12 mg/dL (8.4-25.7); Bilirubin, Total 0.3 mg/dL (0.2-1.2); CK (CPK) 100 U/L (30-200); Calc. Creatinine Clearance 0 mL/min (70-130); Calcium 9.6 mg/dL (7.8-10.44); Carbon Dioxide 23 mmol/L (23-31); Chloride 99 mmol/L (98-107); Estimated GFR-MDRD 74; Globulin 3.8 g/dL (2.4-3.5); Glucose 151 mg/dL (83-110); Lipase 26 U/L (8-78); Potassium 4.2 mmol/L (3.5-5.1); Protein, Total 7.7 g/dL (5.8-8.1); Sodium 132 mmol/L (136-145)
--- NOTE | 2018-05-26 09:29 | RAD ---
CHEST 1 VIEW: COMPARISON: 08/12/2017. HISTORY: Pain. FINDINGS: Atherosclerosis and elongation of the aorta. Normal cardiac silhouette. The pulmonary vessels and h ilum are normal. Costophrenic angles are clear. No masses or consolidation. No pneumothorax or acu te osseous abnormalities. IMPRESSION: Atherosclerosis. No acute cardiopulmonary process. POS: [facility]
[2018-05-26 10:05] LABS: Bilirubin Negative (Negative); Blood, Urine Negative (Negative); Clarity CLEAR (Clear); Glucose, Urine (Dipstick) Negative (Negative); Leukocyte Trace (Negative); Nitrite Negative (Negative); Protein, Urine (Dipstick) Negative (Neg-Trace); Urobilinogen 0.2 mg/dL (0.2-1.0); pH, Urine 7.5 (5.0-9.0)
[2018-05-26 10:07] LABS: Bacteria/HPF None Seen HPF (None Seen); Hyaline Casts/LPF 0-3 HYALINE CAST LPF (0-3 Hyaline); Pathc Cast-AUWi Flag 0.14 (0-2.49); RBC/HPF 0-3 HPF (0-3); Squamous Epithelial 0-3 HPF (0-3)
== END 2018-05-26 10:36 ==
LOC: ERS 07:59
DX: R00.0 Tachycardia, unspecified (principal); D64.9 Anemia, unspecified; K21.9 Gastro-esophageal reflux disease without esophagitis; K59.00 Constipation, unspecified; Z87.440 Personal history of urinary (tract) infections; Z79.899 Other long term (current) drug therapy
CPT/HCPCS: 36415; 51701; 71045; 80053; 81003; 81015; 82550; 83605; 83690; 84484; 85025; 87040; 87086; 93005; 94760; 96374

== ENCOUNTER 2018-06-20 19:35 | Inpatient (IN) | payer MEDICARE ==
[2018-06-20 20:32] LABS: #Eosinphils 0.2 thou/uL (0.0-0.7); #Monocytes 1.3 thou/uL (0.11-0.59); #Neutrophils 7.3 thou/uL (1.40-6.50); %Basophils 0.5 % (0.0-1.0); %Eosinophils 1.8 % (0.0-10.0); %Monocytes 12.1 % (0.0-10.0); %Neutrophils 67.6 % (42.0-75.0); Mean Corpuscular Hemoglobin 30.4 pg (27.0-31.0); Mean Corpuscular Volume 94.9 fL (78.0-98.0); Mean Platelet Volume 6.5 fL (7.4-10.4); Platelet Count 283 thou/uL (130-400); RBC Distribution Width 13.8 % (11.5-14.5); Red Blood Cell (RBC) Count 4.29 mill/uL (4.70-6.10); White Blood Cell (WBC) Count 10.8 thou/uL (4.8-10.8)
[2018-06-20 20:57] LABS: ALT (SGPT) 16 U/L (8-55); AST (SGOT) 24 U/L (5-34); Albumin 3.5 g/dL (3.4-4.8); Alkaline Phosphatase 98 U/L (40-150); Anion Gap 14 mmol/L (10-20); BUN (Urea Nitrogen) 13 mg/dL (8.4-25.7); Bilirubin, Total 0.3 mg/dL (0.2-1.2); Calc. Creatinine Clearance 0 mL/min (70-130); Calcium 8.7 mg/dL (7.8-10.44); Carbon Dioxide 24 mmol/L (23-31); Chloride 96 mmol/L (98-107); Estimated GFR-MDRD 76; Glucose 186 mg/dL (83-110); Potassium 4.4 mmol/L (3.5-5.1); Protein, Total 6.5 g/dL (5.8-8.1); Sodium 130 mmol/L (136-145)
--- NOTE | 2018-06-20 21:25 | ULT ---
LEFT LOWER EXTREMITY VENOUS ULTRASOUND WITH DOPPLER: History: Left lower extremity pain, swelling. Comparison: None. Technique: Grayscale, color flow, doppler imaging and spectral analysis was performed of the left low er venous system. FINDINGS: There is waveform, flow, and augmentation of the common femoral vein, femoral vein, and popliteal vei n. There is flow in the greater saphenous, profunda vein, and posterior tibial vein. IMPRESSION: No evidence of thrombus in the deep lower venous system. POS: [facility]
[2018-06-20] MEDS ORDERED: Piperacillin/Tazobactam 4.5 GM VIAL ONE (21:48)
[2018-06-20] MEDS ORDERED: Vancomycin HCl 1.5 GM in Sodium Chloride 0.9% 250 ML 300 ML IVPB SCH (22:30)
[2018-06-20] MEDS ORDERED: Clindamycin/D5W 600 mg/50 ml Premix Bag ONE (22:35)
[2018-06-21 00:28] LABS: Lactic Acid 1.7 mmol/L (0.5-2.2)
--- NOTE | 2018-06-21 02:11 | PDOC.FPRHP ---
- History of Present Illness Chief Complaint: left leg redness History of Present Illness: 87 yo male presents w/ left lower leg swelling/redness. Due to concern for DVT he was sent over from the care home. History is limited but from what I was able to gather, leg erythema started today. Patient endorses pain, chills, denies feeling feverish or changes in appetite. No recent surgery or immobilization but uses walker. In ED performed duplex venogram that was negative for DVT. He was started given Vanc, zosyn and clindamycin and given 1L NS for treatment of cellulitis. - Allergies/Adverse Reactions Allergies Allergy/AdvReac Type Severity Reaction Status Date / Time metformin HCl Allergy Mild Verified 12/10/17 17:54 [From Glucophage] - Home Medications Medication Instructions Recorded Confirmed Type Acetaminophen [Tylenol Regular 1 - 2 tab PO Q4HR 11/11/14 12/10/17 History Strength] Bisacodyl [Dulcolax] 10 mg ME DAILY PRN 03/04/15 12/10/17 History Furosemide 20 mg PO QAM 03/13/15 12/10/17 History Calcium Carbonate/Vitamin D3 600 tablet PO DAILY 03/23/16 12/10/17 History [Calcium 600 + Vitamin D] Cholecalciferol (Vitamin D3) 2,000 unit PO DAILY 03/23/16 12/10/17 History [Vitamin D3] Pantoprazole [Protonix] 40 mg PO DAILY 03/23/16 12/10/17 History Metoprolol Tartrate [Lopressor] 12.5 mg PO BID #60 tab 03/24/16 12/10/17 Rx Aspirin Chewable [Aspirin Chewable 81 mg PO DAILY 03/31/16 12/10/17 History Tablet] Multivitamin [Multivitamins] 1 tab PO DAILY 07/13/16 12/10/17 History Diltiazem HCl [Cardizem] 60 mg PO 0700,1500,2300 #90 tab 07/24/16 12/10/17 Rx Ferrous Sulfate 325 mg PO DAILY #30 tablet 07/24/16 12/10/17 Rx traMADol HCl [Ultram] 50 mg PO QID #30 tab 07/24/16 12/10/17 Rx Erythromycin Base 0.5% Oint 1 applic R EYE BID 08/12/17 12/10/17 History [Erythromycin Base 0.5% Ophth Oint] Propylene Glycol/PEG 400/PF 2 each OP BID 08/12/17 12/10/17 History [Systane 0.3-0.4% Eye Drop] Adalimumab [Humira] 40 mg SC Q14D syringe 08/14/17 12/10/17 Rx Dutasteride [Avodart] 0.5 mg PO HS cap 08/14/17 12/10/17 Rx Folic Acid [Folvite] 1 mg PO DAILY tab 08/14/17 12/10/17 Rx Fluticasone Propionate [Flonase 1 spray EA NARE DAILY PRN 12/10/17 12/10/17 History Nasal [place]] Mag Hydrox/Aluminum Hyd/Simeth 30 ml PO Q4HR PRN 12/10/17 12/10/17 History [Tmaika-Lanta Liquid] guaiFENesin/Dextromethorphan 10 ml PO Q4HR PRN 12/10/17 12/10/17 History [Robitussin DM] Clindamycin HCl 300 mg PO Q6HR 5 Days #20 capsule 06/21/18 Rx - History PMHx: DM2, anemia, cancer of eye lid, GERD, constipation, UTIs, colostomy, Afib PSHx: partial amputation to right foot 4th digit, colectomy with ostomy FHx: n/c Social: denies e/t/d - Review of Systems General: reports: fever/chills. denies: weight/appetite/sleep changes Eyes: denies: eye pain ENT: denies: nasal congestion, rhinorrhea Respiratory: denies: cough, congestion, shortness of breath Cardiovascular: reports: edema. denies: chest pain, palpitation Gastrointestinal: denies: nausea, vomiting, diarrhea, abdominal pain, GI bleeding Skin: reports: rashes. denies: lesions, jaundice Musculoskeletal: reports: pain, swelling. denies: tenderness, stiffness Neurological: denies: numbness, seizure - Vital signs BP: 158/85 HR: 77 RR: 23 Tmax: 98.2Pox: 97% on RA Wt: [82kg] - Physical Exam Constitutional: NAD, well developed -Constitutional: A&O x2 (person, place) HEENT: normocephalic and atraumatic, EOMI, normal nasal mucosa, MMM -HEENT: lower eyelid conjunctiva red, mildly swollen Neck: supple, FROM, trachea midline Chest: no-tender to palpation, no lesions Heart: RRR, normal S1/S2, no murmurs/rubs/gallops Lungs: CTAB, no respiratory distress, good air movement Abdomen: soft, non-tender, bowel sounds present -Abdomen: colostomy bag, no erythema or purulence Musculoskeletal: normal structure, ROM grossly normal Neurological: no focal deficit Skin: good turgor, capillary refill <2 seconds -Skin: left lower leg extremity: erythematous from ankle to mid-jain. Not sharply demarcated, mild edema. No lesions or purulence. Pedal pulses palpable. Mildly painful to palpation. no fluctuance Heme/Lymphatic: no unusual bruising or bleeding, no purpura FMR H&P: Results - Labs Result Diagrams: 06/20/18 20:15 06/21/18 06:59 Lab results: WBC 10.8 thou/uL (4.8-10.8) 06/20/18 20:15 Hgb 13.0 g/dL (14.0-18.0) L 06/20/18 20:15 Hct 40.7 % (42.0-52.0) L 06/20/18 20:15 MCV 94.9 fL (78.0-98.0) 06/20/18 20:15 Plt Count 283 thou/uL (130-400) 06/20/18 20:15 Neutrophils % 67.6 % (42.0-75.0) 06/20/18 20:15 Sodium 130 mmol/L (136-145) L 06/20/18 20:15 Potassium 4.4 mmol/L (3.5-5.1) 06/20/18 20:15 Chloride 96 mmol/L (98-107) L 06/20/18 20:15 Carbon Dioxide 24 mmol/L (23-31) 06/20/18 20:15 BUN 13 mg/dL (8.4-25.7) 06/20/18 20:15 Creatinine 0.94 mg/dL (0.7-1.3) 06/20/18 20:15 Glucose 186 mg/dL (83-110) H 06/20/18 20:15 Lactic Acid 1.7 mmol/L (0.5-2.2) 06/21/18 00:06 Calcium 8.7 mg/dL (7.8-10.44) 06/20/18 20:15 Total Bilirubin 0.3 mg/dL (0.2-1.2) 06/20/18 20:15 AST 24 U/L (5-34) 06/20/18 20:15 ALT 16 U/L (8-55) 06/20/18 20:15 Alkaline Phosphatase 98 U/L (40-150) 06/20/18 20:15 Serum Total Protein 6.5 g/dL (5.8-8.1) 06/20/18 20:15 Albumin 3.5 g/dL (3.4-4.8) 06/20/18 20:15 - EKG Interpretation EKG: NSR, with PACs FMR H&P: A/P - Problem List (1) Cellulitis Current Visit: Yes Status: Acute Code(s): L03.90 - CELLULITIS, UNSPECIFIED (2) Irregular heart rhythm Current Visit: No Status: Chronic Code(s): I49.9 - CARDIAC ARRHYTHMIA, UNSPECIFIED (3) Status post partial colectomy Current Visit: No Status: Chronic Code(s): Z90.49 - ACQUIRED ABSENCE OF OTHER SPECIFIED PARTS OF DIGESTIVE TRACT (4) Ulcerative colitis Current Visit: No Status: Chronic Code(s): K51.90 - ULCERATIVE COLITIS, UNSPECIFIED, WITHOUT COMPLICATIONS (5) DM type 2 (diabetes mellitus, type 2) Current Visit: No Status: Chronic Qualifiers: Diabetes mellitus custodial insulin use: with custodial use Diabetes mellitus complication status: with unspecified complications Qualified Code(s) : E11.8 - Type 2 diabetes mellitus with unspecified complications; Z79.4 - long term care pharmacist (current) use of insulin; Z79.4 - custodial (current) use of insulin; Z79.4 - custodial (current) use of insulin; Z79.4 - long term care pharmacist (current) use of insulin - Plan Cellulitis of left lower leg -No signs of systemic infection: afebrile, no WBCs. Pending procal and blood cultures -s/p vanc, zosyn, clinda. will continue only vanc, can transition to oral po abx if clinically improving Chronic hyponatremia -Na at 130, asx -AM BMP DM2 -sliding scale Ulcerative colitis s/p colectomy -MD aware -continue w/ colostomy care while in hospital GERD -home protonix Constipation -home stool softeners dvt ppx: lovenox gi ppx: protonix dispo: <2 midnights Will discuss w/ Dr. Waite FMR H&P: Upper Level - Pertinent history Pt is an 87 y/o M with UC, HTN, dementia presenting for a red L lowe leg. [place] physician recommended he present to ED to r/u DVT and cellulitis. Pt is unable to give meaningful history. 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 ED course: Pt given Vancomycin, Zosyn, and Clindamycin along with IVF. - Plan Date/Time: 06/21/18209 I, Amos Chew, have evaluated this patient and agree with findings/plan as outlined by internal grinding machine operator resident. Pertinent changes/additions are listed here. 1. Cellulitis - This is likely mild and will improve with IV ab. Sono was negative for acute DVT. Will continue Vancomycin and anticipate transition to PO medications soon. Does not appear to have systemic signs of infection or sepsis. Lactic acid was elevated and will trend. 2. Mild dehydration will gently replete fluids. 3. Chronic Hyponatremia: 130, continue to monitor. 4. A-fib - No acute issues and rate controlled. 5. HFpEF - No acute issues; gentle fluids. Addendum - Attending - Attending Attestation Date/Time: 06/21/18 [id number] I personally evaluated the patient and discussed the management with Dr. Dorado. I agree with the History, Examination, Assessment and Plan documented above with any addition or exceptions noted below. The patient was sent to the ER from [facility] due to redness and swelling of the left lower extremity. Doppler was negative for DVT. Labs are stable. Leg has area of erythema along calf with mild warmth, minimal tenderness, no fluctuance. Pt was initially given IV antibiotics. He appears stable to transition to PO antibiotics and send back to the care home.
[2018-06-21] MEDS ORDERED: Acetaminophen 325 MG TAB PO PRN (04:13)
[2018-06-21] MEDS ORDERED: Ondansetron ODT 4 MG TAB PO PRN (04:13)
[2018-06-21] MEDS ORDERED: hydrALAZINE 20 MG/ML VIAL SLOW IVP PRN (04:41)
[2018-06-21] MEDS ORDERED: Dextrose 50% Abboject 50 ML SYRINGE SLOW IVP PRN (04:42)
[2018-06-21] MEDS ORDERED: Dextrose 5% in Water 1,000 ML IV PRN (04:42)
[2018-06-21] MEDS ORDERED: HumaLOG 300 UNITS/3 ML VIAL SC PRN (04:42)
[2018-06-21] MEDS ORDERED: Vancomycin HCl 1.5 GM in Sodium Chloride 0.9% 250 ML 300 ML IVPB SCH ×2 (07:00→11:00)
[2018-06-21 07:29] LABS: Anion Gap 14 mmol/L (10-20); BUN (Urea Nitrogen) 11 mg/dL (8.4-25.7); Calc. Creatinine Clearance 0 mL/min (70-130); Calcium 8.6 mg/dL (7.8-10.44); Carbon Dioxide 22 mmol/L (23-31); Chloride 99 mmol/L (98-107); Estimated GFR-MDRD Greater than 90; Glucose 150 mg/dL (83-110); Potassium 4.3 mmol/L (3.5-5.1); Sodium 131 mmol/L (136-145)
[2018-06-21] MEDS ORDERED: Pantoprazole 40 MG GRANULES PACKET PO SCH (09:00)
[2018-06-21] MEDS ORDERED: Enoxaparin Sodium 40 MG/0.4 ML SYRINGE SC SCH (09:00)
[2018-06-21] MEDS ORDERED: Enoxaparin Sodium 40 MG/0.4 ML SYRINGE ONE (10:01)
--- NOTE | 2018-06-23 00:01 | DIS ---
DATE OF ADMISSION: 06/20/2018 DATE OF DISCHARGE: 06/21/2018 RESIDENT: Ann Marie Vail DO ADMITTING ATTENDING: Jesus Woodward MD DISCHARGE ATTENDING: Erica Waite MD CONSULT: None. PROCEDURES: 06/20/2018, vascular ultrasound showed no evidence of thrombus in the lower venous system. PRIMARY DIAGNOSIS: Cellulitis of left lower leg. SECONDARY DIAGNOSES: 1. Chronic hyponatremia. 2. Diabetes type 2. 3. Ulcerative colitis, status post colectomy. 4. Gastroesophageal reflux disease. 5. Constipation. DISCHARGE MEDICATIONS: 1. Tylenol 325 mg 1-2 tabs p.o. q.4 hours. 2. Dulcolax 10 mg [place] daily p.r.n. 3. Furosemide 20 mg p.o. q.a.m. 4. Vitamin D3 of 2000 units p.o. daily. 5. Pantoprazole 40 mg p.o. daily. 6. Calcium 600 + vitamin D 1 tablet p.o. daily. 7. Metoprolol 12.5 mg p.o. b.i.d. 8. Aspirin chewable 81 mg p.o. daily. 9. Multivitamin one tab p.o. daily. 10. Diltiazem 60 mg p.o. t.i.d. 11. Tramadol 50 mg p.o. q.i.d. 12. Ferrous sulfate 325 mg p.o. daily. 13. Erythromycin ophthalmic ointment one application right eye b.i.d. 14. Propylene glycol Systane eye drop, 2 drops each eye b.i.d. 15. Humira 40 mg subcu q.14 days. 16. Avodart 0.5 mg p.o. at bedtime. 17. Folic acid 1 mg p.o. daily. 18. Flonase nasal spray one spray to each naris daily p.r.n. 19. Robitussin DM 10 mL p.o. q.4 hours p.r.n. 20. Tamika-Lanta liquid 30 mL p.o. q.4 hours p.r.n. 21. Clindamycin 300 mg p.o. q.6 hours for 5 days #20. DISCONTINUED MEDICATIONS: None. HISTORY OF PRESENT ILLNESS: An 87-year-old male presents with left lower leg swelling and erythema. There was concern for DVT, which was ruled out with a lower extremity Doppler. He was started on IV antibiotics in the emergency department. There were no signs of systemic infection as patient was afebrile with no white count. The patient was diagnosed with uncomplicated cellulitis and was discharged back to the snf with 5 days of oral clindamycin to complete treatment regimen. There was no fluctuance and patient was stable to transition to p.o. antibiotics. LOCATION: [facility]. DIET: Diabetes diet. ACTIVITY: As tolerated. FOLLOWUP: Follow up with PCP, Dr. Estrella, at [facility] in 1 week. Job ID: [id number]
== END 2018-06-21 13:15 | DRG 603 ==
LOC: ERS 19:35 → ERHOLD 21:40
PROVIDERS: ADMIT Family Medicine; ATTEND Family Medicine
DX: L03.116 Cellulitis of left lower limb (principal); K51.90 Ulcerative colitis, unspecified, without complications; E87.1 Hypo-osmolality and hyponatremia; E11.9 Type 2 diabetes mellitus without complications; D64.9 Anemia, unspecified; K21.9 Gastro-esophageal reflux disease without esophagitis; I48.91 Unspecified atrial fibrillation; I49.9 Cardiac arrhythmia, unspecified; K59.00 Constipation, unspecified; E86.0 Dehydration; Z88.8 Allergy status to other drugs, medicaments and biological substances; Z93.3 Colostomy status; Z87.440 Personal history of urinary (tract) infections; Z89.431 Acquired absence of right foot; Z90.49 Acquired absence of other specified parts of digestive tract
CPT/HCPCS: 36415; 80048; 80053; 81001; 83605; 84484; 85025; 87040; 87086; 87804; 93005; J1650; J2543; J3370; J3490; J7050

== ENCOUNTER 2018-08-06 11:59 | Emergency (ER) | payer MEDICARE ==
--- NOTE | 2018-08-06 13:19 | CT ---
CT Head without IV contrast COMPARISON: 07/13/2016 HISTORY: Patient fell and is on aspirin. Injury after fall. TECHNIQUE: Axial CT imaging at 5 mm intervals from vertex through skull base without contrast FINDINGS: There is no evidence of an acute infarction, hemorrhage, mass effect, or midline shift. There is decr eased attenuation seen in the periventricular white matter which is nonspecific but likely attributable to chronic small vessel ischemic changes. There is mild cerebral volume loss. The ventri cular system is normal in size, shape, and position for the degree of sulcal atrophy. Mild mucosal thickening is seen in a few right ethmoidal air cells. Osseous structures appear intact. CT head is overall stable compared to prior exam with vascular calcifications again seen in the carot id siphons and distal vertebral arteries. There is ectasia of the distal left vertebral artery which is a stable finding. IMPRESSION: 1. No acute intracranial abnormality demonstrated. 2. Chronic small vessel ischemic changes and cerebral volume loss.
--- NOTE | 2018-08-06 13:24 | CT ---
EXAM: CT cervical spine PROVIDED CLINICAL HISTORY: Injury after a fall. Unwitnessed fall. Patient on blood thinners. TECHNIQUE: Contiguous axial CT images are obtained through the cervical spine from the skull base to the level o f the T1 vertebral body. Sagittal and coronal reformatted images are provided. COMPARISON: None FINDINGS: Multilevel degenerative changes are present including prominent degenerative changes at the articulat ion of the odontoid with anterior arch of C1 vertebral body. There is slight retrolisthesis of C3 on C4 related to prominent degenerative changes. No additional level of subluxation is appreciated. N o fracture is seen. No prevertebral soft tissue swelling apparent. Visualized lung apices appear clear. Dense vascular c alcifications are seen in the carotid arteries. IMPRESSION: 1. No evidence for fracture or traumatic subluxation. 2. Multilevel degenerative changes. Mild retrolisthesis of C3 on C4 is likely related to the degenera tive changes.
== END 2018-08-06 17:00 ==
LOC: ERS 11:59
DX: S00.03XA Contusion of scalp, initial encounter (principal); E11.9 Type 2 diabetes mellitus without complications; D64.9 Anemia, unspecified; K21.9 Gastro-esophageal reflux disease without esophagitis; I48.91 Unspecified atrial fibrillation; Z79.899 Other long term (current) drug therapy; Z79.82 Long term (current) use of aspirin; Z79.4 Long term (current) use of insulin; W18.30XA Fall on same level, unspecified, initial encounter
CPT/HCPCS: 70450; 72125